=== PATIENT | male | born 1975 | race Caucasian/White ===

== ENCOUNTER 2017-11-03 15:05 | Emergency (ER) | payer BC, MEDICAID ==
[2017-11-03 15:11] VITALS: BP 128/84; PULSE 65; RESP 16; TEMP 98.9; O2SAT 97
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
== END 2017-11-03 20:30 | disposition home or self-care (01) ==
LOC: H.ER 15:05
DX: F41.9 Anxiety disorder, unspecified (principal)